=== PATIENT | male | born 1960 | race Caucasian/White ===

== ENCOUNTER 2020-10-31 02:43 | Emergency (ER) | payer OTHER ==
[~2020-10-31] VITALS: Ht 175.3 cm; Wt 95.3 kg
[2020-10-31 03:12] VITALS: BP 144/95
[2020-10-31] MEDS ORDERED: PREDNISONE50 MG PO (04:44)
[2020-10-31] MEDS ORDERED: TRIAMCINOLONE A80 G2 TOP (04:44)
== END 2020-10-31 04:57 | disposition home or self-care (01) ==
LOC: M.ERS 02:43
DX: T78.49XA Other allergy, initial encounter (principal); X58.XXXA Exposure to other specified factors, initial encounter